=== PATIENT | female | born 1965 | race Caucasian/White ===

== ENCOUNTER 2017-08-28 10:30 | Emergency (ER) | payer OTHER ==
[~2017-08-28] VITALS: Ht 167.6 cm; Wt 72.5 kg
[~2017-08-28 10:30] MED LIST: ATOR40TA28 PO; FAMO20 PO; GLIP10 PO; LISI-662 PO; METF850T2 PO; OMEG1CAP12 PO; PARO20TA24 PO; VITAD1000 PO
[2017-08-28] MEDS ORDERED: PROZ10 PO (10:39)
[2017-08-28] MEDS ORDERED: SODIUM CHLORIDE 0.9% 1,000 ML IV ONE ×2 (11:50→13:00)
[2017-08-28] MEDS ORDERED: FLUO-191 PO (11:57)
[2017-08-28] MEDS ORDERED: OMEG-135 PO (11:57)
[2017-08-28] MEDS ORDERED: METF500T7 PO (11:57)
[2017-08-28] MEDS ORDERED: ONDANSETRON HCL 4 MG/2 ML VIAL IVP ONE (12:00)
[2017-08-28] MEDS: KETOROLAC TROMETHAMINE 30 MG/ML VIAL IVP ONE ×2 (12:06→12:11)
[2017-08-28 12:19] LABS: BASOPHILS % (AUTO) 0.3 % (0.0-2.0); EOSINOPHILS % (AUTO) 0.6 % (1.0-6.0); HEMATOCRIT 40.3 % (36-46); LYMPHOCYTES % (AUTO) 39.6 % (22.0-44.0); MEAN CORPUSCULAR HEMOGLOBIN 31.8 pg (26.0-34.0); MEAN CORPUSCULAR HGB CONC 34.7 G/dL (31.0-37.0); MEAN CORPUSCULAR VOLUME 92 fL (80-100); MONOCYTES # (AUTO) 0.4 K/uL (0.1-1.0); MONOCYTES % (AUTO) 4.9 % (2.0-9.0); NEUTROPHILS # (AUTO) 4.2 K/uL (1.8-7.7); NEUTROPHILS % (AUTO) 54.6 % (40.0-70.0); PLATELET COUNT (AUTO) 290 K/uL (150-450); RED CELL DISTRIBUTION WIDTH 12.5 % (11.5-14.5); WHITE BLOOD COUNT (AUTO) 7.7 K/uL (4.5-11.0)
[2017-08-28 12:34] LABS: ADD UA MICROSCOPIC YES; APPEARANCE,URINE CLEAR (CLEAR); GLUCOSE, URINE (UA) >=1000 mg/dL (NEGATIVE); KETONES,URINE NEGATIVE (NEGATIVE); LEUKOCYTE ESTERASE ,URINE NEGATIVE (NEGATIVE); OCCULT BLOOD,URINE NEGATIVE (NEGATIVE); PROTEIN,URINE NEGATIVE (NEGATIVE)
[2017-08-28 12:37] LABS: ANION GAP 8 mmol/L (8-16); CALCIUM, TOTAL 9.3 mg/dL (8.8-10.5); CARBON DIOXIDE 29 mmol/L (22-29); CHLORIDE 101 mmol/L (98-107); CREATININE 0.73 mg/dL (0.60-1.30); GLOMERULAR FILTR. RATE CALC > 60 mL/min (>60); POTASSIUM 3.4 mmol/L (3.5-5.1); SODIUM SERUM 138 mmol/L (136-145); UREA NITROGEN, BLOOD 16 mg/dL (7-18)
[2017-08-28 12:42] LABS: ALANINE AMINOTRANSFERASE 38 U/L (12-78); ALBUMIN 4.1 g/dL (3.4-5.0); ASPARTATE AMINOTRANSFERASE 17 U/L (15-37); BILIRUBIN,TOTAL 0.5 mg/dL (0.1-1.0); TOTAL PROTEIN, SERUM 7.5 g/dL (6.4-8.2)
[2017-08-28 12:57] LABS: RBC,URINE None Seen /HPF (0-2); WBC,URINE None Seen /HPF (0-5)
[2017-08-28 14:30] VITALS: BP 130/68
== END 2017-08-28 14:47 | disposition home or self-care (01) ==
LOC: EMS 10:31
DX: R10.84 Generalized abdominal pain (principal); R11.2 Nausea with vomiting, unspecified; E11.9 Type 2 diabetes mellitus without complications; I10 Essential (primary) hypertension; E78.00 Pure hypercholesterolemia, unspecified
CPT/HCPCS: 36415; 80053; 81001; 83690; 85025; 93005; 96374; 99285; J2405; J7030; J1885

== ENCOUNTER 2018-12-07 12:41 | Emergency (ER) | payer OTHER ==
[~2018-12-07] VITALS: Ht 165.1 cm; Wt 79.5 kg
[~2018-12-07 12:41] MED LIST changes: +FLUO-191 PO; +METF500T7 PO; -METF850T2 PO; +OMEG-135 PO; -OMEG1CAP12 PO; -PARO20TA24 PO
[2018-12-07 12:47] VITALS: BP 133/75
[2018-12-07 12:54] LABS: GLUCOSE,POINT OF CARE 273 MG/DL (70-110)
== END 2018-12-07 14:24 | disposition home or self-care (01) ==
LOC: EMS 12:41
DX: R51 Headache (principal); M54.5 Low back pain; F32.9 Major depressive disorder, single episode, unspecified; E11.9 Type 2 diabetes mellitus without complications; E78.00 Pure hypercholesterolemia, unspecified; I10 Essential (primary) hypertension; Z79.84 Long term (current) use of oral hypoglycemic drugs; Z79.899 Other long term (current) drug therapy

== ENCOUNTER 2018-12-08 08:53 | Emergency (ER) | payer OTHER ==
[~2018-12-08] VITALS: Ht 167.6 cm; Wt 77.3 kg
[2018-12-08 09:13] LABS: GLUCOSE,POINT OF CARE 220 MG/DL (70-110)
[2018-12-08] MEDS ORDERED: CYCLOBENZAPRINE HCL 10 MG TABLET PO ONE (09:15)
[2018-12-08] MEDS ORDERED: LIDOCAINE 5% TRANSDERMAL PATCH TD ONE (09:15)
[2018-12-08] MEDS ORDERED: IBUPROFEN 600 MG TABLET PO ONE (09:15)
[2018-12-08 11:35] VITALS: BP 120/73
== END 2018-12-08 11:38 | disposition home or self-care (01) ==
LOC: EMS 08:53
DX: M54.2 Cervicalgia (principal); M54.5 Low back pain; R51 Headache; I10 Essential (primary) hypertension; E11.9 Type 2 diabetes mellitus without complications; E78.00 Pure hypercholesterolemia, unspecified; F32.9 Major depressive disorder, single episode, unspecified; Z79.84 Long term (current) use of oral hypoglycemic drugs; Z79.899 Other long term (current) drug therapy; W18.39XA Other fall on same level, initial encounter; Y93.89 Activity, other specified; Y92.89 Other specified places as the place of occurrence of the external cause; Y99.8 Other external cause status
CPT/HCPCS: 72040; 72100

== ENCOUNTER 2019-06-17 09:55 | Emergency (ER) | payer OTHER ==
[~2019-06-17] VITALS: Ht 162.6 cm; Wt 77.3 kg
[~2019-06-17 09:55] MED LIST changes: +CHOL100018 PO; +METF500T20 PO; -METF500T7 PO; -VITAD1000 PO
[2019-06-17] MEDS ORDERED: KETOROLAC TROMETHAMINE 60 MG/2 ML VIAL IM ONE (11:00)
[2019-06-17 12:45] VITALS: BP 111/67
== END 2019-06-17 14:10 | disposition home or self-care (01) ==
LOC: EMS 09:55
DX: S60.221A Contusion of right hand, initial encounter (principal); E11.9 Type 2 diabetes mellitus without complications; I10 Essential (primary) hypertension; E78.00 Pure hypercholesterolemia, unspecified; F32.9 Major depressive disorder, single episode, unspecified; Z79.84 Long term (current) use of oral hypoglycemic drugs; W19.XXXA Unspecified fall, initial encounter; Y93.89 Activity, other specified; Y92.89 Other specified places as the place of occurrence of the external cause; Y99.8 Other external cause status
CPT/HCPCS: 29125; 73130; 82962; 96372; 99283; J1885